=== PATIENT | male | born 1975 | race Two or more races ===

== ENCOUNTER 2023-08-01 06:40 | Day surgery (SDC) | payer BC ==
[~2023-08-01] VITALS: Ht 170.2 cm; Wt 78.1 kg
[~2023-08-01 06:40] MED LIST: BENADRYL25 MG PO; EPIN0.3P IM; MESALAMINE DR400 MG PO; MIDAZOLAM HCL 5 MG/5 ML VIAL IV PRN; PREDNISONE20 MG PO; ZYRTEC10 MG PO; fentaNYL citrate 100 MCG/2 ML VIAL IV PRN
[2023-08-01] MEDS ORDERED: MIDAZOLAM HCL 5 MG/5 ML VIAL ONE (06:46)
[2023-08-01] MEDS ORDERED: fentaNYL citrate 100 MCG/2 ML VIAL ONE (06:46)
[2023-08-01 06:56] VITALS: BP 108/63
[2023-08-01] MEDS ORDERED: LIDOCAINE HCL 1% 5 ML SDV INJ ONE (07:00)
[2023-08-01] MEDS ORDERED: IBLOOD GLUCOSE TEST STRIP 1 EA TEST VI PRN (07:00)
[2023-08-01] MEDS ORDERED: LACTATED RINGER'S 1,000 ML IV SCH (07:00)
--- NOTE | 2023-08-01 08:23 | NUR ---
08/01/23 0823 Sandra Alvarez 0818-PATIENT ARRIVED TO PACU ON 2L NC RR EVEN 99%. PATIENT LAYING LEFT LATERAL DROWSY DENIES PAIN OR NAUSEA. ABDOMEN SOFT ENCOURAGED TO PASS GAS. IVF INFUSING.
[2023-08-01 09:12] VITALS: BP 103/61
--- NOTE | 2023-08-01 11:05 | OR ---
[facility] [address], [place] [address] Signed DATE OF OPERATION: 08/01/2023 SURGEON: Weston Brito MD PREOPERATIVE DIAGNOSIS: History of biopsy confirmed ulcerative colitis, clinically doing well. POSTOPERATIVE DIAGNOSIS: Mild edema of left colon and sigmoid, otherwise normal colon to cecum. PROCEDURE: Total colonoscopy to cecum with biopsies. ANESTHESIA: Intravenous sedation; fentanyl 100 mcg and Versed 5 mg. INDICATIONS FOR THE PROCEDURE: This 48-year-old male was diagnosed with ulcerative colitis based on colonoscopy performed on September 14, 2022. He was treated with mesalamine and has had a prompt response. He was noted most dominantly to have severe proctitis, for which rectally administered steroid enemas were effective. He remains on mesalamine 400 mg p.o. t.i.d. and generally is doing quite well at this point. I have recommended colonoscopy at this point to assure that he has mucosal healing and no other abnormalities that are subclinical. The risk of bleeding, infection, and perforation related to colonoscopy was reviewed with him. He understands and wished to proceed. FINDINGS: The prep was excellent. Complete colonoscopy was undertaken of the cecum. Much of the colon had absolutely no pathology including all of the right colon and transverse. The only manifestation of colitis on the left side and rectosigmoid area was submucosal edema, specifically nonvisualization of blood vessels. The rectum itself was reasonably normal in its appearance. Biopsies were taken throughout. DESCRIPTION OF PROCEDURE: The patient was brought to the endoscopy suite and placed in lateral decubitus position given intravenous sedation to the point of slurred speech and nystagmus. Full cardiopulmonary monitoring was maintained. Digital rectal examination was normal. An Olympus video colonoscope was passed into the rectum and manipulated throughout the colon ultimately intubating the cecum. The scope was withdrawn from that point, showing Electronically Signed By: WESTNO BRITO MD 08/01/23 1105 PATIENT NAME: TAMMY LAM OPERATIVE REPORT DATE OF : 71 REPORT #: [id number] PHYSICIAN: WESTON BRITO MD PCP: WENDY TRENT PA-C REPORT IS CONFIDENTIAL AND NOT TO BE RELEASED WITHOUT AUTHORIZATION [facility] [address], [place] [address] Signed no sign of abnormality of the right colon or transverse colon. In the left colon, low-grade edema was noted, this was biopsied. Further withdrawal allowed biopsy of sigmoid and ultimately the rectum as well. Retroflexed view was normal. Scope was removed. The patient was taken to the recovery room in good condition. CONCLUDING DIAGNOSIS: Excellent mucosal healing at this point. PLAN: We will continue with mesalamine 400 mg p.o. t.i.d. for the time being. We will see him back in the office in a few weeks to review his pathology report and his clinical situation and proceed from there. MD FANY Wade/CHEOL /[id number] cc: Wendy Trent PA-C Copies: WENDY TRENT PA-C ~ Electronically Signed By: WESTON BRITO MD 08/01/23 1105 PATIENT NAME: ODILIA TAMMY CASTLE OPERATIVE REPORT DATE OF : 71 REPORT #: [id number] PHYSICIAN: WESTON BRITO MD PCP: WENDY TRENT PA-C REPORT IS CONFIDENTIAL AND NOT TO BE RELEASED WITHOUT AUTHORIZATION
--- NOTE | 2023-08-05 17:37 | PATH ---
[facility] [address], [place] [address] Signed SPECIMEN(S): A DESCENDING/LEFT COLON BIOPSY SPECIMEN(S): B SIGMOID COLON BIOPSY SPECIMEN(S): C RECTOSIGMOID COLON BIOPSY SPECIMEN(S): D RECTUM BIOPSY SPECIMEN SOURCE: A. DESCENDING/LEFT COLON BIOPSY B. SIGMOID COLON BIOPSY C. RECTOSIGMOID COLON BIOPSY D. RECTUM BIOPSY CLINICAL HISTORY: History of ulcerative colitis FINAL PATHOLOGIC DIAGNOSIS: A. Descending/left colon biopsy: - Quiescent colonic mucosa, negative for dysplasia. B. Sigmoid colon biopsy: - Quiescent colonic mucosa, negative for dysplasia. C. Rectosigmoid colon biopsy: - Quiescent colonic mucosa, negative for dysplasia. D. Rectum, biopsy: - Quiescent colonic mucosa, negative for dysplasia. JVR:shoaib MICROSCOPIC EXAMINATION: Histologic sections of all submitted blocks are examined by light microscopy. These findings, together with the gross examination, support the pathologic diagnosis. GROSS DESCRIPTION: A. The specimen, labeled and designated "Sonya Bennett, descending/left colon biopsy," is received in formalin and consists of three duffy soft tissue fragments, ranging from 0.2-0.4 cm. Entirely submitted in (A1). B. The specimen, labeled and designated "Sonya Bennett, sigmoid colon biopsy," is received in formalin and consists of five duffy soft tissue fragments, ranging from 0.1-0.4 cm. Entirely submitted in (B1). C. The specimen, labeled and designated "Sonya Bennett, rectosigmoid colon biopsy," is received in formalin and consists of three duffy soft tissue PATIENT NAME: TAMMY LAM PATHOLOGY DATE OF : 71 REPORT #: [id number] PHYSICIAN: TENISHA PATHOLOGY PCP: SONDRA WALKER PA-C REPORT IS CONFIDENTIAL AND NOT TO BE RELEASED WITHOUT AUTHORIZATION [facility] [address], [place] [address] Signed fragments, ranging from 0.2-0.6 cm. Entirely submitted in (C1). D. The specimen, labeled and designated "Sonya Bennett, rectum biopsy," is received in formalin and consists of four duffy soft tissue fragments, ranging from 0.2-0.3 cm. Entirely submitted in (D1). VB (under the direct supervision of a pathologist) The Gross Description was prepared using a voice recognition system. The report was reviewed for accuracy; however, sound-alike word errors, addition and/or deletions may occur. If there is any question about this report, please contact Client Services. ADDITIONAL NOTES: Immunohistochemical and/or in situ hybridization studies if performed in this case included appropriate positive controls that reacted as expected. This test was developed and its performance characteristics determined by [facility]. It has not been cleared or approved by the U.S. Food and Drug Administration. The FDA has determined that such clearance or approval is not necessary. This test is used for clinical purposes. It should not be regarded as investigational or for research. [facility] is certified under the Clinical Laboratory Improvement Amendments of 1988 (CLIA) as qualified to perform high complexity clinical laboratory testing. PERFORMING LABORATORY: Technical component was performed by [facility], [address] [place] [id number] (CLIA# [id number]). [facility], [address] [place] [address] (CLIA#: [id number]) Diagnostician: Kamron Hernandez MD Pathologist Electronically Signed 08/05/2023 Copies: ~ PATIENT NAME: TAMMY LAM PATHOLOGY DATE OF : 71 REPORT #: [id number] PHYSICIAN: TENISHA PATHOLOGY PCP: SONDRA WALKER PA-C REPORT IS CONFIDENTIAL AND NOT TO BE RELEASED WITHOUT AUTHORIZATION
== END 2023-08-01 09:18 | disposition home or self-care (01) ==
LOC: OPS 06:40 → DS 06:40 → OPS 07:30 → DS 08-05 13:00 → OPS 08-05 13:00
PROVIDERS: ATTEND Surgery
PROC: 0DBE8ZX Excision of Large Intestine, Via Natural or Artificial Opening Endoscopic, Diagnostic (ICD-10-PCS; principal; 2023-08-01 07:30)
DX: K63.89 Other specified diseases of intestine (principal); Z98.890 Other specified postprocedural states; Z88.0 Allergy status to penicillin; Z79.899 Other long term (current) drug therapy
CPT/HCPCS: 99153; G0500; J2250; J3010; J7121